=== PATIENT | female | born 1955 | race African-American/Black ===

== ENCOUNTER 2021-05-18 23:37 | Emergency (ER) | payer OTHER ==
[~2021-05-18] VITALS: Ht 160 cm; Wt 66.0 kg
[2021-05-19] MEDS ORDERED: LEVETIRACETAM 500MG PREMIX 100 ML IV ONE (00:15)
[2021-05-19 00:55] LABS: BASOPHILS % 0.4 % (0.0-2.0); EOSINOPHILS % 3.2 % (0.0-5.0); HEMATOCRIT. 31.2 % (36.0-48.0); HEMOGLOBIN. 10.4 g/dL (12.0-16.0); MEAN CORPUSCULAR HEMOGLOBIN 27.1 pg (28.0-32.0); MEAN CORPUSCULAR VOLUME 81.3 fL (81.0-99.0); MEAN PLATELET VOLUME 7.6 fl (7.4-10.4); MONOCYTES % 7.2 % (2.0-8.0); NEUTROPHILS % 72.2 % (40.0-76.0); PLATELET 237 x1000/uL (130-400); RED BLOOD CELL COUNT 3.84 mill/uL (4.2-5.4); RED CELL DISTRIBUTION WIDTH 18.2 % (11.6-14.6)
[2021-05-19 01:03] LABS: CHLORIDE 108 mEq/L (98-107)
[2021-05-19 01:46] LABS: PARTIAL THROMBOPLASTIN TIME 23.7 sec (23.4-31.0)
[2021-05-19] MEDS ORDERED: ASPIRIN 325MG EC TABLET PO ONE (03:15)
[2021-05-19 05:53] VITALS: BP 96/68
== END 2021-05-19 06:10 | disposition short-term general hospital (02) ==
LOC: ER 23:37
DX: R55 Syncope and collapse (principal); R56.9 Unspecified convulsions; I10 Essential (primary) hypertension; Z20.822 Contact with and (suspected) exposure to COVID-19
CPT/HCPCS: 36415; 70450; 71045; 80053; 83880; 84484; 85025; 85610; 85730; 87426; 93005; 96365; 99285; J1953